=== PATIENT | female | born 1950 ===

== ENCOUNTER 2020-09-06 14:51 | Outpatient (CLI) | payer OTHER ==
[~2020-09-06 14:51] MED LIST: CATAFLAM50 MG PO
== END 2020-09-06 14:55 | disposition home or self-care (01) ==
LOC: RAD 14:51
PROVIDERS: ATTEND Internal Medicine
DX: M15.0 Primary generalized (osteo)arthritis (principal)

== ENCOUNTER 2020-09-13 08:07 | Outpatient (CLI) | payer OTHER | END 2020-09-13 08:12 | disposition home or self-care (01) | LOC: SONOGRAMA 08:07 | PROVIDERS: ATTEND Pathology Anatomic Pathology & Clinical Pathology | DX: D34 Benign neoplasm of thyroid gland (principal); E04.8 Other specified nontoxic goiter; E07.89 Other specified disorders of thyroid; E04.2 Nontoxic multinodular goiter ==

== ENCOUNTER 2023-11-02 08:45 | Outpatient (CLI) | payer OTHER | END 2023-11-02 08:53 | disposition home or self-care (01) | LOC: RAD 08:45 | PROVIDERS: ATTEND Internal Medicine | DX: M15.0 Primary generalized (osteo)arthritis (principal); M54.17 Radiculopathy, lumbosacral region; M25.551 Pain in right hip ==

== ENCOUNTER → 2023-11-27 | Outpatient (CLI) | payer OTHER | END | disposition home or self-care (01) | LOC: MRI 11:24 | PROVIDERS: ATTEND Internal Medicine | DX: M54.17 Radiculopathy, lumbosacral region (principal) | CPT/HCPCS: 72148 ==

== ENCOUNTER 2024-08-10 10:48 | Outpatient (CLI) | payer OTHER | END 2024-08-10 10:56 | disposition home or self-care (01) | LOC: TOM 10:48 | PROVIDERS: ATTEND Internal Medicine | DX: R10.84 Generalized abdominal pain (principal) ==

== ENCOUNTER 2024-09-12 14:34 | Outpatient (CLI) | payer OTHER | END 2024-09-12 14:37 | disposition home or self-care (01) | LOC: RAD 14:34 | PROVIDERS: ATTEND Internal Medicine | DX: J84.10 Pulmonary fibrosis, unspecified (principal); Q44.6 Cystic disease of liver ==

== ENCOUNTER → 2024-09-12 15:14 | Outpatient (CLI) | payer OTHER | END | disposition home or self-care (01) | LOC: LAB 09:06 | PROVIDERS: ATTEND Internal Medicine | DX: C50.112 Malignant neoplasm of central portion of left female breast (principal); R16.0 Hepatomegaly, not elsewhere classified; C22.0 Liver cell carcinoma; R91.8 Other nonspecific abnormal finding of lung field; D14.30 Benign neoplasm of unspecified bronchus and lung ==